=== PATIENT | female | born 1995 | race Caucasian/White ===

== ENCOUNTER 2020-05-26 21:25 | Emergency (ER) | payer BC, OTHER ==
[~2020-05-26] VITALS: Ht 167.6 cm; Wt 61.7 kg
[~2020-05-26 21:25] MED LIST: LEVE750T3 PO
[2020-05-26 21:56] VITALS: BP 132/79
[2020-05-26] MEDS ORDERED: KETOROLAC 30 MG/ML VIAL IM ONE (22:40)
[2020-05-27 00:45] VITALS: BP 132/79
== END 2020-05-27 00:45 | disposition home or self-care (01) ==
LOC: MED 21:25
DX: R10.9 Unspecified abdominal pain (principal); I10 Essential (primary) hypertension; N20.0 Calculus of kidney; Z88.8 Allergy status to other drugs, medicaments and biological substances
CPT/HCPCS: 74176; 81002; 81025; 96372; 99284; J1885

== ENCOUNTER 2021-09-04 21:11 | Emergency (ER) | payer OTHER ==
[~2021-09-04] VITALS: Ht 167.6 cm; Wt 63.5 kg
[2021-09-04 22:00] VITALS: BP 141/87
--- NOTE | 2021-09-04 22:03 | NUR ---
TO LOBBY A/W BED AMBULATORY
[2021-09-05 01:22] LABS: HEMOGLOBIN 14.7 g/dL (12.0-16.0); MEAN CORPUSCULAR HEMOGLOBIN 32 pg (27-31)
[2021-09-05 01:27] LABS: BASOPHILS % (AUTO) 0.1 % (0.0-2.0); EOSINOPHILS # (AUTO) 0.3 K/uL (0-0.4); EOSINOPHILS % (AUTO) 3.1 % (0.0-4.0); HEMATOCRIT 42.4 % (36-48); LYMPHOCYTES # (AUTO) 2.6 K/uL (2.5-16.5); LYMPHOCYTES % (AUTO) 32.5 % (20.5-51.1); MEAN CORPUSCULAR HGB CONC 35 g/dL (33-37); MEAN CORPUSCULAR VOLUME 90.9 fL (80-94); MONOCYTES # (AUTO) 0.6 K/uL (0.8-1.0); MONOCYTES % (AUTO) 7.3 % (1.7-9.3); NEUTROPHILS # (AUTO) 4.5 K/uL (1.8-7.7); PLATELET COUNT (AUTO) 229 K/uL (140-450); RED BLOOD CELL COUNT(AUTO) 4.66 MIL/uL (4.20-5.40); RED CELL DISTRIBUTION WIDTH 12.7 % (11.6-13.7)
[2021-09-05 01:35] LABS: APPEARANCE,URINE CLEAR (CLEAR); BILIRUBIN,URINE NEGATIVE (NEGATIVE); BLOOD, URINE 3+ (NEGATIVE); COLOR,URINE YELLOW (YELLOW); LEUKOCYTE ESTERASE ,URINE NEGATIVE (NEGATIVE); NITRITE, URINE NEGATIVE (NEGATIVE); UGLUCOSE NEGATIVE (NEGATIVE)
[2021-09-05 01:40] LABS: ALBUMIN 4.4 g/dL (3.4-5.0); ANION GAP 13.4 (8-16); CARBON DIOXIDE 25.6 mmol/L (21-32); CREATININE 0.8 mg/dL (0.6-1.3); TOTAL BILIRUBIN 0.4 mg/dL (0.0-1.0)
[2021-09-05 01:53] LABS: RBC,URINE 50-80 /HPF (0-5)
[2021-09-05] MEDS ORDERED: cefTRIAXone 1,000 MG in LIDOCAINE MPF 1% 2.1 ML IM ONE (02:35)
[2021-09-05] MEDS ORDERED: cephALEXin 500 MG CAP PO ONE (04:30)
[2021-09-05] MEDS ORDERED: CEPH-588 PO ×2 (04:30→05:17)
--- NOTE | 2021-09-05 05:00 | NUR ---
RN WITNESSED PELVIC EXAM PERFORMED BY .
[2021-09-05] MEDS ORDERED: AMOX-999 PO (05:08)
[2021-09-05 05:15] VITALS: BP 141/87
== END 2021-09-05 05:15 | disposition home or self-care (01) ==
LOC: MED 21:11
DX: N39.0 Urinary tract infection, site not specified (principal); Z88.8 Allergy status to other drugs, medicaments and biological substances; Z79.899 Other long term (current) drug therapy
CPT/HCPCS: 36415; 76830; 80053; 81001; 81025; 84702; 85025; 87086; 96372; 99284; Q0092